=== PATIENT | male | born 1940 | race Caucasian/White ===

== ENCOUNTER 2022-05-12 16:47 | Emergency (ER) | payer MEDICARE, SELFPAY ==
[2022-05-12 17:12] VITALS: BP 146/76; PULSE 47; RESP 15; TEMP 36.8; O2SAT 97; BMI 25.1
--- NOTE | 2022-05-12 18:08 | ED_ITS ---
HPI - General Adult General Chief complaint: Ear/Nose/Throat Problem Stated complaint: Dry mouth Time Seen by Provider: 05/12/22 17:10 History of Present Illness HPI narrative: This 81-year-old male states that he has a taste in his mouth that is been present for the past 2 and half weeks or so. He states that he had pizza and feels like he still tasting the crossed or the cardboard that was in since then. He does report some nausea symptoms. He does not have any other complaints. He is not taking any new medications. He is taking Pepcid which he occasionally uses of course for reflux symptoms. He also takes Prilosec off end on. He does not report any neurologic deficits. He has not had any fevers and does not report any pain. Related Data Home Medications Medication Instructions Recorded Confirmed atorvastatin 20 mg tablet 20 mg PO DAILY 05/12/22 05/12/22 losartan 100 mg tablet 100 mg PO DAILY 05/12/22 05/12/22 metoprolol tartrate 25 mg tablet 25 mg PO DAILY 05/12/22 05/12/22 nortriptyline 10 mg capsule 10 mg PO DAILY 05/12/22 05/12/22 omeprazole 20 mg capsule,delayed 20 mg PO DAILY 05/12/22 05/12/22 release Previous Rx's Medication Instructions Recorded famotidine 20 mg tablet 20 mg PO QDAY #90 tabs 03/19/22 zolpidem 10 mg tablet (Ambien) 10 mg PO .hs PRN insomnia #30 tabs 04/02/22 clonazepam 0.5 mg tablet 0.5 mg PO QDAY #90 tabs 04/13/22 amlodipine 5 mg tablet 7.5 mg PO QDAY #135 tabs 05/05/22 ondansetron HCl 4 mg tablet 4 mg PO Q6H #20 tabs 05/12/22 Allergies Allergy/AdvReac Type Severity Reaction Status Date / Time Oibzvks-OAD-MiQ Reductase AdvReac Mild Cough Verified 05/12/22 17:17 Inhibitor Review of Systems Status of ROS: Reports: 10 or more systems reviewed and unremarkable except as noted in History and below Narrative: Constitutional: No fevers, no weight gain or loss. Eyes: No discharge. No vision changes. HENT: No congestion, no sore throat, no ear pain. Cardiovascular: No chest pain, no palpitations. Respiratory: No shortness of breath, no wheezes, no cough. Gastrointestinal: No abdominal pain, no vomiting, no diarrhea. Genitourinary: No dysuria, no hematuria. Musculoskeletal: Normal range of motion. Skin: No rashes, no pruritis. Neurological: No dizziness, weakness, sensory change, speech change. Taste sensation as described above. Endo/Heme/Allergies: No bruising or bleeding. No polydipsia. Pysch: no suicidality, no anxiety, no insomnia. All other systems reviewed and are negative. [facility] Medical History (Updated 05/12/22 @ 19:12 by Reggie Arias MD) GERD (gastroesophageal reflux disease) Insomnia Social History Smoking Status: Never smoker Do you use any of these nicotine containing products: None How often do you have a drink containing alcohol: 4 or more times a week How many standard drinks containing alcohol do you have on a typical day: 3 or 4 How often do you have six or more drinks on one occasion: Never AUDIT-C Alcohol total score: 5 Non-prescribed substance use: denies use service: No Exam Narrative: Exam Narrative: Constitutional: Well-developed, well-nourished, no acute distress. HEENT: Normocephalic, atraumatic. Neck: Normal range of motion. Nontender. Supple. Heart: Regular. No murmurs. Normal rate. Intact distal pulses. Lungs: Clear to auscultation. No chest discomfort. No wheezes, rhonchi, or rales. Abdomen: Normal bowel sounds. Nontender. No rebound tenderness. Genitalia: Deferred. Back: No midline tenderness. Normal range of motion. Extremities: Normal range of motion. No injury. Skin: Intact. No rash. Warm. No erythema or pallor. Neurologic: No altered sensation. No weakness. Alert and oriented. Psychiatric: No suicidality. No anxiety or depression. No insomnia. Nursing notes and vitals signs are reviewed. Const: Vital Signs, click to edit/add: Vital Signs - 24 hr 05/12/22 17:12 Temperature 98.3 F Pulse Rate [Pulse Oximeter] 47 L Respiratory Rate 15 Blood Pressure [Ri ght Upper Arm] 146/76 H Pulse Oximetry 97 Oxygen Delivery Me thod Room Air Course Vital Signs Vital signs: Initial Vital Signs Temperature 98.3 F 05/12/22 17:12 Temperature Source Temporal Artery Scan 05/12/22 17:12 Pulse Rate 47 L 05/12/22 17:12 Respiratory Rate 15 05/12/22 17:12 Blood Pressure 146/76 H 05/12/22 17:12 Blood Pressure Mean 99 05/12/22 17:12 Blood Pressure Position Sitting 05/12/22 17:12 Pulse Oximetry 97 05/12/22 17:12 Oxygen Delivery Method 05/12/22 17:12 Vital Signs Temperature 98.3 F 05/12/22 17:12 Pulse Rate 47 L 05/12/22 17:12 Respiratory Rate 15 05/12/22 17:12 Blood Pressure 146/76 H 05/12/22 17:12 Pulse Oximetry 97 05/12/22 17:12 Oxygen Delivery Method 05/12/22 17:12 Temperature 98.3 F 05/12/22 17:12 Pulse Rate 47 L 05/12/22 17:12 Respiratory Rate 15 05/12/22 17:12 Blood Pressure 146/76 H 05/12/22 17:12 Pulse Oximetry 97 05/12/22 17:12 Oxygen Delivery Method 05/12/22 17:12 Medical Decision Making MDM Narrative Medical decision making narrative: This patient comes in reporting a taste sensation in his mouth over the past couple weeks. He does report some nausea symptoms so he received a tablet of Zofran 4 mg. He states that this got rid of that taste sensation. He did want to have his labs checked in these all returned with normal results. I did provide prescription for Zofran for him for ongoing management of nausea symptoms as needed and directed. Lab Data Labs: Lab Results 05/12/22 05/12/22 Range/Units 18:15 18:15 WBC 5.31 (4.50-11.00) K/uL RBC 4.46 (4.30-5.90) m/uL Hgb 14.4 (13.5-17.5) gm/dL Hct 42.2 (37.0-53.0) % MCV 95 (80-100) fL MCH 32 (26-34) pg MCHC 34 (32-36) gm/dL RDW Coeff of Ziggy 12.0 (11.5-15.5) % Plt Count 185 (140-440) K/uL Neut % (Auto) 57.9 (42.0-72.0) % Lymph % (Auto) 26.2 (20-44) % [place] % (Auto) 13.0 H (0.0-11.0) % Eos % (Auto) 1.9 (0.0-7.0) % Baso % (Auto) 0.8 (0.0-3.0) % Neut # (Auto) 3.08 (1.7-7.0) K/uL Lymph # (Auto) 1.39 (0.90-2.90) K/uL [place] # (Auto) 0.70 (0.00-0.90) K/UL Eos # (Auto) 0.10 (0.00-0.50) K/uL Baso # (Auto) 0.04 (0.00-0.30) K/uL Abs Immat Gran (auto) 0.01 (0.00-0.30) K/uL Sodium 139 (135-149) mmol/L Potassium 4.3 (3.6-5.1) mmol/L Chloride 104 (96-114) mmol/L Carbon Dioxide 26 (20-32) mmol/L BUN 20 (7-30) mg/dL Creatinine 0.8 (0.5-1.5) mg/dL Estimated Creat Clear 56.95 Estimated GFR 88 ml/min Glucose 94 (60-115) mg/dL Calcium 9.9 (8.4-10.6) mg/dL Total Bilirubin 0.9 (0.1-1.5) mg/dL Direct Bilirubin 0.3 (0.0-0.5) mg/dL AST 26 (12-35) U/L ALT 20 (4-50) U/L Alkaline Phosphatase 77 (40-150) U/L Total Protein 7.5 (6.0-8.3) g/dL Albumin 4.7 (3.3-5.0) g/dL Discharge Plan Discharge Clinical Impression: Altered taste, Nausea Patient Disposition: Home, Self-Care Condition: Improved Additional Instructions: Take medication as needed and directed. Follow up with MD or return if worsening. Prescriptions: New ondansetron HCl 4 mg tablet 4 mg PO Q6H Qty: 20 0RF No Action atorvastatin 20 mg tablet 20 mg PO DAILY nortriptyline 10 mg capsule 10 mg PO DAILY omeprazole 20 mg capsule,delayed release(DR/EC) 20 mg PO DAILY losartan 100 mg tablet 100 mg PO DAILY metoprolol tartrate 25 mg tablet 25 mg PO DAILY famotidine 20 mg tablet 20 mg PO QDAY Qty: 90 4RF zolpidem [Ambien] 10 mg tablet 10 mg PO .hs PRN (Reason: insomnia) Qty: 30 2RF clonazepam 0.5 mg tablet 0.5 mg PO QDAY Qty: 90 0RF amlodipine 5 mg tablet 7.5 mg PO QDAY Qty: 135 0RF Follow Up/Referrals: Terence Vickers MD [Primary Care Provider] - Stand Alone Forms: [facility] Info Instructions
--- OUTSIDE RECORDS SUMMARY | 2022-05-12 18:12 | XMS_ITS | Clinical Summary ---
:1940 Author Organization [employer] [facility] Address [place] [address] Care Team Providers Name Role Phone Suhas Randolph MD Unavailable Terence Vickers MD Primary Care Provider Allergies No known active allergies Medications Medication Sig Dispensed Refills Start Date End Date Status atorvastatin (LIPITOR) Take 1 tablet 90 tablet 3 01/07/2017 Active 40 mg tablet by mouth once daily. nortriptyline (PAMELOR) Take 1 capsule 90 capsule 11 01/07/2017 Active 10 mg capsule by mouth at bedtime. metoprolol tartrate Take 1 tablet 180 tablet 1 08/12/2017 Active (LOPRESSOR) 50 mg tablet by mouth 2 times daily clonazePAM (KLONOPIN) Take 1/2-1 30 tablet 0 10/28/2017 Active 0.5 mg tablet tablet by mouth at bedtime zolpidem (AMBIEN) 10 mg Take 1 tablet 7 tablet 2 11/24/2017 Active tablet by mouth at bedtime as needed for sleep. Not to use more than 3 tabs per week. Capsicum, Cayenne, 450 Daily 0 Active mg cap multivitamins with 0 A ctive minerals tablet amLODIPine (NORVASC) 10 Take 0.5 0 06/26/2021 Active mg tablet Tablets by mouth once daily. aspirin enteric coated Daily 0 Active (ECOTRIN) 325 mg tablet cholecalciferol (VITAMIN Daily 0 Active D3) 1,000 unit capsule famotidine (PEPCID) 20 Daily 0 01/31/2021 Active mg tablet losartan (COZAAR) 50 mg Take 2 Tablets 0 08/01/2020 Active tablet by mouth once daily. coenzyme q10 100 mg cap Daily 0 Active Active Problems Problem Noted Date Health examination of defined subpopulation 12/20/2013 Coronary artery calcification seen on CAT scan 014 Hypertension 12/18/2013 Hyperlipidemia 12/18/2013 Abnormal findings diagnostic imaging of heart and chad nary circulation 12/18/2013 Lung nodule 12/18/2013 Insomnia 12/18/2013 GERD (gastroesophageal reflux disease) 12/18/2013 Shoulder injury 12/18/2013 Immunizations Name Administration Dates Next Due COVID-19 vaccine (Intapp 10/19/2020, 09/28/2020 30mcg/0.3mL) PF, MDV Influenza Virus, Unspecified 05/23/2021, 06/01/2012, 011 Influenza, High-dose Inactivated 05/30/2018, 05/26/2017, 01/2016, 05/29/2014 Influenza, High-dose Quadrivalent 06/04/2021, 06/04/2020 Inactivated Influenza, IIV3 (Age >=3 years) 06/12/2010, 05/22/2009, 02/2008, 07/06/2007, 06/16/2005 Influenza, IIV4 05/27/2019 Pneumococcal Poly,23-Valent 07/11/2011, 07/11/2010, 05/22/20 09 (Pneumovax) Pneumococcal conj 13-Valent (Prevnar 02/24/2018 13) Td (Age >=7 Years) 08/23/2008, 08/26/2004, 09/29/1990 Td, Preservative Free (age >= 7 08/23/2008 Years) Tdap 02/24/2018 Zoster (Shingrix-RZV, recombinant) 07/14/2019, 05/13/2019 Zoster (Zostavax-ZVL, live) 08/13/2014 Family History Medical History Relation Name Comments Other Brother born prematurely so walks with walker Good Health Daughter x 2 Other Father natural causes Heart attack Maternal Grandfather Lung cancer Mother Heart attack Paternal Grandfather Multiple sclerosis Sister 1 No Known Problems Sister 2 Good Health Son Relation Name Status Comments Brother Alive Daughter x 2 Alive Father Maternal Grandfather Maternal Grandmother Mother Paternal Grandfather Paternal Grandmother Sister 1 Alive Sister 2 Alive Son Alive Social History Tobacco Use Types Packs/Day Years Used Date Former Smoker Started: 12/29 Smokeless Tobacco: Never Used Alcohol Use Standard Drinks/Week Comments Yes 17.5 (1 standard drink = 0.6 oz pure eit her 2 beers daily or 2 glasses alcohol) of wine Alcohol Habits Answer Date Recorded How often do you have a drink 4 or more times a week 021 containing alcohol? How many drinks containing alcohol do 1 or 2 you have on a typical day when you are drinking? How often do you have six or more Never 2020 drinks on one occasion? Comment: either 2 beers daily or 2 glasses 2020 of wine Sex Assigned at Date Recorded Not on file Obstetrics History Last Filed Vital Signs Vital Sign Reading Time Taken Comments Blood Pressure 122/60 10/02/2021 10:53 AM BPM DEVELOPER Pulse 68 10/02/2021 10:53 AM BPM DEVELOPER Temperature - - Respiratory Rate - - Oxygen Saturation - - Inhaled Oxygen Concentration - - Weight 83.6 kg (184 lb 6.4 oz) 10/02/2021 10:53 AM BPM DEVELOPER Height 175.3 cm (5' 9) 10/02/2021 10:53 AM BPM DEVELOPER Body Mass Index 27.23 10/02/2021 10:53 AM BPM DEVELOPER Plan of Treatment Health Maintenance Due Date Last Done Comments Medicare Wellness for age 65+ 2004 COVID-19 vaccine series (4 - 10/04/2021 06/03/2021, 021, Booster for Pfizer series) 09/28/2020 Depression screening for age 12+ 10/09/2021 10/09/2020 Influenza for age 65+ 04/23/2022 06/04/2021, 05/23/2021, 06/04/2020, Additional history exists BMI (ht and wt on same day) for 10/02/2022 10/02/2021, 08/24, age 18+ 10/09/2020 Tetanus booster 02/25/2028 02/24/2018, 08/23/2008, 08/23/2008, Additional history exists Pneumococcal series for age 65+ Completed 02/24/2018, 06/23, 07/11/2010, Additional history exists Tdap Completed 02/24/2018 Zoster (shingles) series for age Completed 07/14/2019, , 50+ 08/13/2014 Goals Goal Patient Goal Associated Recent Patient-Stated? Author Type Problems Progress BLOOD PRESSURE Blood Pressure No Tomasa , Edouard MAINTAINS BP MD Suhas less than 140/90 Results Not on filefrom Last 3 Months Insurance Payer Benefit Plan / Subscriber ID Effective Dates Phone Addre ss Type Group MEDICARE PART B - MEDICARE PART B [id number] 2004-Presen ATTN: CLAIMS HB USE ONLY HB ONLY t [address] [facility] [address] MEDICA MEDICA PRIME [id number] 2016-Presen [address] [address] [place] [address] [facility] MR [id number] 2021-Presen [address] [address] [place] [address] [place] Occ Other [id number] [facility] DS ONLY Health/Shellie (Home) [place], [place] [phone] [id number] (Work) [employer] 1940 [id number] (Home) [place] [address] Care Teams Water Treatment Specialist Relationship Specialty Start Date End Date Terence Vickers MD PCP - General Family Practice 02/15/19 [address] [place] [address] Suhas Randolph MD Consulting Physician Cardiovascular Disease 12/29/13
[2022-05-12] MEDS: ONDANSETRON ODT 4 MG TAB PO (18:22)
[2022-05-12 18:30] LABS: Basophils Absolute Auto 0.04 K/uL (0.00-0.30); Basophils Percent Auto 0.8 % (0.0-3.0); Eosinophils Percent Auto 1.9 % (0.0-7.0); Hematocrit 42.2 % (37.0-53.0); Hemoglobin* 14.4 gm/dL (13.5-17.5); Immature Granulocytes Abs Auto 0.01 K/uL (0.00-0.30); Lymphocytes Absolute Auto 1.39 K/uL (0.90-2.90); Lymphocytes Percent Auto 26.2 % (20-44); Mean Corpuscular HGB Conc 34 gm/dL (32-36); Mean Corpuscular Hemoglobin 32 pg (26-34); Mean Corpuscular Volume 95 fL (80-100); Neutrophils Absolute Auto 3.08 K/uL (1.7-7.0); Neutrophils Percent Auto 57.9 % (42.0-72.0); Platelet Count* 185 K/uL (140-440); Red Blood Count 4.46 m/uL (4.30-5.90); White Blood Count* 5.31 K/uL (4.50-11.00)
[2022-05-12 18:32] LABS: Slide Review Reflex No
[2022-05-12 18:40] LABS: Albumin* 4.7 g/dL (3.3-5.0); Chloride* 104 mmol/L (96-114)
[2022-05-12 18:41] LABS: Potassium* 4.3 mmol/L (3.6-5.1); Sodium* 139 mmol/L (135-149)
[2022-05-12 18:43] LABS: Aspartate Amino Transferase* 26 U/L (12-35); Bilirubin Direct* 0.3 mg/dL (0.0-0.5); Bilirubin Total* 0.9 mg/dL (0.1-1.5); Blood Urea Nitrogen* 20 mg/dL (7-30); Carbon Dioxide* 26 mmol/L (20-32); Creatinine* 0.8 mg/dL (0.5-1.5); Est. Creatinine Clearance* 56.95; Estimated Glomerular Filt Rate 88 ml/min; Total Protein* 7.5 g/dL (6.0-8.3)
[2022-05-12 18:44] LABS: Alanine Aminotransferase* 20 U/L (4-50); Alkaline Phosphatase* 77 U/L (40-150); Calcium* 9.9 mg/dL (8.4-10.6); Glucose* 94 mg/dL (60-115)
[2022-05-12 19:21] VITALS: BP 139/75; PULSE 46; RESP 18; TEMP 35.8
== END 2022-05-12 19:26 | disposition home or self-care (01) ==
PROVIDERS: Emergency Provider Emergency Medicine Emergency Medical Services; PCP Family Medicine
DX: R43.9 Unspecified disturbances of smell and taste (principal); R11.0 Nausea
CPT/HCPCS: 36415; 80048; 80076; 85025; 99283; 99284; A9270

== ENCOUNTER 2023-02-03 09:56 | Outpatient (CLI) | payer MEDICARE, SELFPAY | END 2023-02-03 09:57 | disposition home or self-care (01) | LOC: NFLDREF 02-04 00:59 | PROVIDERS: PCP Family Medicine; Referring Provider Family Medicine; Visit Provider Family Medicine | DX: Z00.00 Encounter for general adult medical examination without abnormal findings (principal); E78.5 Hyperlipidemia, unspecified; I10 Essential (primary) hypertension; I25.10 Atherosclerotic heart disease of native coronary artery without angina pectoris; Z12.5 Encounter for screening for malignant neoplasm of prostate | CPT/HCPCS: 80053; 80061; 84153 ==

== ENCOUNTER 2024-01-24 09:35 | Outpatient (CLI) | payer OTHER, SELFPAY ==
--- OUTSIDE RECORDS SUMMARY | 2024-02-08 17:02 | XMS_ITS | Encounter Summary ---
Author Organization [employer] Address [address] [place] [address] Care Team Providers Care Medical Aide Name Role Phone Sabrina Martell MD Primary Care Provider Unavailable Andrey Willis MD Primary Care Provider [phone] Terence Vickers MD Primary Care Provider [phone] Avila Maria MD Unavailable [phone] Avila Maria MD Unavailable [phone] Encounter Details Date Type Department Care Team (Late st Contact Info) Description 11/21/2007 Office Visit-[facility] [id number] [place] [address] Rosamaria Valerio PA-C Social History Tobacco Use Types Packs/Day Years Used Date Smoking Tobacco: Former Cigarettes Q uit: 08/27/1997 Alcohol Use Standard Drinks/Week Comments Yes 0 (1 standard drink = 0.6 oz pur e alcohol) 2-3 beers/day Sex and Gender Information Value Date Recorded Sex Assigned at Not on file Gender Identity Not on file Sexual Orientation Not on file documented as of this encounter Progress Notes * Rosamaria Valerio PA-C - 11/23/2007 9:41 AM CDT Progress Note Created by: Sharda Olvera DATE: 11/21/2007 ALONZO MELISSA DATE OF : 1940 AGE: [age] years old Referring Physician: SABRINA MARTELL Referring Clinic: [facility] CURRENT DIAGNOSES 1. Cardiomyopathy, 425.4 2. - Hypercholesterolemia, 272.0 3. - CAD, 414.00 4. - Abnormal Test-Abnormal Exercise Stress Test, 794.30 5. - Chest Pain Precordial, 786.51 6. - Hypertension, benign, 401.1 ALLERGIES Statins/cough MEDICATIONS (prior to changes made today) 1. Omeprazole 20mg, Take as Directed 2. Metoprolol ER 50mg, 1 p.o. q.d. 3. Diovan 160 mg, 1 p.o. q.d. 4. Ranitidine Hydrochloride 300 mg, PRN 5. Meloxicam 7.5 mg, PRN 6. Vytorin 10mg/ 80mg, 1 p.o. q.d. CHIEF COMPLAINTS F/u ct HISTORY OF PRESENT ILLNESS Mr. Alonzo Melissa is a delightful 67-year-old gentleman who presents today for a follow-up regarding chest pain and cardiac risk factors. He has risk factors of family history, hypertension and dyslipidemia. He has had two prior CT scans at [facility] showing a calcium score of 183 back in 2002 and in 2006 it was over 400. He was very concerned about this and was sent for a stress test. The nuclear images showed a mild degree of inferior ischemia as well as a small, reversible basal anterior defect. His EF was 49%. He was complaining of some chest discomfort symptoms. He described a left sided discomfort radiating to the axilla. It was mostly nonexertional and not associated withdiaphoresis, shortness of breath or light-headedness. He is able to walk around his home without any difficulty. He takes trips to the grocery store and even carries the groceries home again without difficulty. His LDL cholesterol had consistently been 100, therefore his simvastatin was increased to 80mg. He also had a CT angiogram done to evaluate the abnormal stress test. This showed a normal left main. The LAD was mildly occluded in the proximal segment. Just beyond the ostium was mild to moderate narrowing with mixed plaque. The first and second diagonal were normal. The left circumflex had trivial plaque and the right coronary artery had mild soft plaque present in the proximal segment. The mid and distal segments were normal with step artifact present. The lungs and soft tissues didnot reveal any significant abnormality. Today Mr. Melissa tells me that the chest pain still occurs very intermittently although he thinksoverall it is improved. He denies any exertional component. He also denies any shortness of breath.His blood pressure is well controlled today at 128/70 and he has restarted his Diovan. His cholesterol results showed triglycerides of 131, total cholesterol 151, HDL 52, LDL 73, ratio 2.9 and ALT 31. He is tolerating the increased simvastatin without any myalgias. 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 EYES denies diplopia, history of glaucoma or visual field defects. EARS, NOSE, THROAT, MOUTH denies any hearing loss, epistaxis, hoarseness or difficulty speaking. RESPIRATORY dyspnea with exertion CARDIOVASCULAR negative for palpitations, chest pain, orthopnea, PND, peripheral edema, syncope or claudication. ABDOMINAL denies ulcer disease, hematochezia or melena. MUSCULOSKELETAL arthritis of the, back/spine NEUROLOGICAL denies any history of recurrent strokes, headaches, TIA, or seizure disorder. PSYCHIATRIC denies any history of depression, substance abuse or change in cognitive functions. ENDOCRINE weight gain HEMATOLOGICAL/IMMUNOLOGIC denies any food allergies, seasonal allergies, bleeding disorders. PHYSICAL EXAMINATION VITAL SIGNS: Blood Pressure: 128/70 Sitting, Left arm, large cuff Pulse- 52.00/min. Weight- 207.00 lbs. Height- 70.00 Temperature- .00 CONSTITUTIONAL cooperative, alert and oriented,well developed, well nourished, in no acute distress. SKIN warm and dry to touch, no apparent skin lesions, or masses noted. HEAD normocephalic, atraumatic EYES Pupils equal and round, conjunctivae and lids unremarkable, sclera white, no xanthalasma NECK carotid pulses are full and equal bilaterally, JVP normal, no carotid bruit, no thyromegaly CHEST normal symmetry, no tenderness to palpation, normal respiratory excursion, no intercostal retraction, no use of accessory muscles, clear to auscultation and percussion. CARDIAC regular rhythm, S1 normal, S2 normal, No S3 or S4, Apical impulse not displaced, no murmurs, gallops or rubs detected. ABDOMEN abdomen soft, bowel sounds normoactive, no masses, no hepatosplenomegaly, non- tender, no bruits PERIPHERAL PULSES pulses full and equal in all extremities, no bruits auscultated. EXTREMITIES & BACK no deformities, clubbing, cyanosis, erythema or edema observed. There are no spinal abnormalities noted. Normal muscle strength and tone. NEUROLOGICAL no gross motor deficits noted, affect appropriate, oriented to time, person and place. MEDICATIONS UPDATED/STARTED TODAY: Omeprazole 20mg, Take as Directed, DIRECTED IMPRESSION AND PLAN: 1. Hyperlipidemia. At this time his numbers are controlled. His goal LDL should be less than 100, it is now 73. He will continue to follow his lipids with Dr. Martell every six months. 2. Coronary artery disease which is mild to moderate by CT angiogram. He is asymptomatic. I have not recommended any further treatment at this time. I will discuss with Dr. Lemons whether we should do annual stress testing on this patient and let him know. He will return to our clinic PRN at this point. Sharda Olvera documented in this encounter Plan of Treatment Not on file documented as of this encounter Visit Diagnoses Not on filedocumented in this encounter Care Teams Medical Aide Relationship Specialty Start Date End Date Sabrina Martell MD PCP - General 03/04/04 11/16/16 Andrey Willis MD [facility] [address] [place] [id number] PCP - General Family Practice 11/17/16 01/31/18 Terence Vickers MD [facility] [address] [place] [address] PCP - General Family Practice 02/01/18 Avila Maria MD [address] [place] [address] [id number] Assigned Heart and Vascular Provider 10/23/20 1/9/21 Avila Maria MD [address] [place] [address] Assigned Heart and Vascular Provider 03/07/22 09/03/23 documented as of this encounter
--- OUTSIDE RECORDS SUMMARY | 2024-02-08 17:02 | XMS_ITS | Encounter Summary ---
Author Organization [facility] Address [address] [place] [address] Care Team Providers Care Cordwainer Name Role Phone Dylan Chopra MD Primary Care Provider Unavailable Andrey Willis MD Primary Care Provider [phone] Terence Vickers MD Primary Care Provider [phone] Avila Maria MD Unavailable [phone] Avila Maria MD Unavailable [phone] Reason for Visit * Reason Onset Date Comments MyChart Communication 05/03/2009 Encounter Details Date Type Department Care Team (Latest Contact Info) Description 05/02/2009 [facility] [address] [address] Dylan Chopra MD MyChart Communication Social History Tobacco Use Types Packs/Day Years Used Date Smoking Tobacco: Former Cigarettes Q uit: 08/27/1997 Alcohol Use Standard Drinks/Week Comments Yes 0 (1 standard drink = 0.6 oz pur e alcohol) 2-3 beers/day Sex and Gender Information Value Date Recorded Sex Assigned at Not on file Gender Identity Not on file Sexual Orientation Not on file documented as of this encounter Plan of Treatment Not on file documented as of this encounter Visit Diagnoses Not on filedocumented in this encounter Care Teams Cordwainer Relationship Specialty Start Date End Date Dylan Chopra MD PCP - General 03/04/04 11/16/16 Andrey Willis MD [facility] [address] [place] [address] PCP - General Family Practice 11/17/16 01/31/18 Terence Vickers MD [facility] [address] [address] PCP - General Family Practice 02/01/18 Avila Maria MD [address] [place] [address] Assigned Heart and Vascular Provider 06/14/20 08/31/20 Avila Maria MD [address] [place] [address] Assigned Heart and Vascular Provider 03/07/22 09/03/23 documented as of this encounter
--- OUTSIDE RECORDS SUMMARY | 2024-02-08 17:02 | XMS_ITS | Referral Summary ---
Author Organization [facility] Address [address] [place] [address] Care Team Providers Care Freight Rate Analyst Name Role Phone Terence Vickers MD Primary Care Provider [phone] Allergies Active Allergy Reactions Criticality Noted Date Comments Chaparro Inhibitors Swelling 08/26/2004 noc. coughing Medications Medication Sig Dispensed Refills Start Date End Date Status zolpidem (AMBIEN) 10 MG tabletIndications:S leep disorder Take 1 tablet (10 mg) by mouth nightly as needed for sleep 30 tablet 1 05/05/2013 Active Additional Information Patient taking differently: 5 mgOral AT BEDTIME PRN, sleep, Reported on 03/04/2022 Omeprazole (PRILOSEC PO) Take 20 mg by mouth every morning Active clonazePAM (KLONOPIN) 0.5 MG tablet Take 0.5 mg by mouth as needed for anxiety Active losartan-hydrochlor othiazide (HYZAAR) 50-12.5 MG per tablet Take 1 tablet by mouth daily Active atorvastatin (LIPITOR) 40 MG tablet TAKE 1/2 TABLET (20MG) BY MOUTH DAILY. 3 02/13/2019 Active aspirin (ASA) 325 MG EC tabletIndications:H ypertension goal BP (blood pressure) < 140/90 Take 1 tablet (325 mg) by mouth daily 02/22/2019 Active amLODIPine (NORVASC) 5 MG tabletIndications:H ypertension goal BP (blood pressure) < 140/90 Take 1 tablet (5 mg) by mouth daily 90 tablet 3 02/22/2019 Active Active Problems Problem Noted Date Diagnosed Date Hyperlipidemia LDL goal <100 02/08/2013 Sleep disorder 02/03/2013 Hypertension goal BP (blood pressure) < 140/90 0 12/18/2011 IBS (irritable bowel syndrome) 10/23/2011 Anxiety 08/21/2009 Esophageal reflux 08/26/2004 Need for prophylactic vaccin ation with tetanus-diphtheria (Td) 08/26/2004 Impotence of organic origin 08/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 01/09/2011 Hyperlipidemia LDL goal <100 06/22/2010 08/27/2010 Hyperlipidemia 08/26/2004 05/27/2006 Overview: Problem list name updated by automated process. Provider to review Immunizations Name Administration Dates Next Due Influenza (IIV3) PF 06/01/2012, 1,06/12/2010,05/22/2009, 8,07/06/2007,06/16/2005 Pneumococcal 23 valent 05/22/2009 TD,PF 7+ (Tenivac) 08/26/2004 Zoster vaccine, live 08/13/2014 Social History Tobacco Use Types Packs/Day Years Used Date Smoking Tobacco: Former Cigarettes Q uit: 08/27/1997 Smokeless Tobacco: Never Alcohol Use Standard Drinks/Week Comments Yes 0 (1 standard drink = 0.6 oz pur e alcohol) 2 beers/day Adolescent Education Answer Date Record ed Getting School Help Needed Not on file 05/16 Sex and Gender Information Value Date Recorded Sex Assigned at Not on file Gender Identity Not on file Sexual Orientation Not on file Last Filed Vital Signs Vital Sign Reading Time Taken Comments Blood Pressure 157/77 05/10/2022 5:55 AM CDT Pulse 39 05/10/2022 5:55 AM CDT Temperature 36.6 ??C (97.8 ??F) 05/10/2022 5:56 AM CD T Respiratory Rate 20 05/10/2022 5:56 AM CDT Oxygen Saturation 100% 05/10/2022 5:56 AM CDT Inhaled Oxygen Concentration - - Weight 85.5 kg (188 lb 8 oz) 03/04/2022 8:43 AM CDT Height 174 cm (5' 8.5) 03/04/2022 8:43 AM CDT Body Mass Index 28.24 03/04/2022 8:43 AM CDT Plan of Treatment Not on file Procedures Procedure Name Priority Date/Time Associated Diagnosis Comments COLONOSCOPY Routine 03/29/2018 7:17 AM CDT LIPID PROFILE Routine 01/07/2017 BASIC METABOLIC PANEL Routine 01/07/2017 ALBUMIN RANDOM URINE QUANTITATIVE Routine 02/17/2013 12:25 PM CDT Hypertension goal BP (blood pressure) < 140/90 PROSTATE SPECIFIC ANTIGEN SCREEN Routine 06/01/2012 10:06 AM CDT Special screening for malignant neoplasms of other sites from Last 3 Months or Most Recently Relevant to Health Maintenance Results * COLONOSCOPY (03/29/2018 7:17 AM CDT) Pathologist [facility] COLONOSCOPY [facility] Patient Name: Alonzo Eastmann ?Procedure Date: 03/29/2018 7:17 AM ? Date of : 1940 ?Admit Type: Outpatient Age: 77 ? Gender: Male Attending MD: Kian Dia MD ?? Total Sedation Time: __29___minutes continuous bedside 1:1 Instrument Name: 138 ? Procedure: ?Colonoscopy Indications: ?High risk colon cancer surveillance: Personal ?history of colonic polyps Providers: ?Kian Dia MD (Doctor) Referring MD: ? Terence Vickers MD (Referring MD) Medicines: ?None Complications: ?No immediate complications. Procedure: ?Pre-Anesthesia Assessment: ?- Prior to the procedure, a History and Physical ?was performed, and patient medications and ?allergies were reviewed. The patient is competent. ?The risks and benefits of the procedure and the ?sedation options and risks were discussed with the ?patient. All questions were answered and informed ?consent was obtained. Patient identification and ?proposed procedure were verified by the physician ?in the procedure room. Mental Status Examination: ?alert and oriented. Airway Examination: normal ?oropharyngeal airway and neck mobility. Respiratory ?Examination: clear to auscultation. CV Examination: ?normal. Prophylactic Antibiotics: The patient does ?not require prophylactic antibiotics. Prior ?Anticoagulants: The patient has taken no previous ?anticoagulant or antiplatelet agents. ASA Grade ?Assessment: II - A patient with mild systemic ?disease. After reviewing the risks and benefits, ?the patient was deemed in satisfactory condition to ?undergo the procedure. The anesthesia plan was to ?use moderate sedation / analgesia (conscious ?sedation). Immediately prior to administration of ?medications, the patient was re-assessed for ?adequacy to receive sedatives. The heart rate, ?respiratory rate, oxygen saturations, blood ?pressure, adequacy of pulmonary ventilation, and ?response to care were monitored throughout the ?procedure. The physical status of the patient was ?re-assessed after the procedure. ?After obtaining informed consent, the colonoscope ?was passed under direct vision. Throughout the ?procedure, the patient's blood pressure, pulse, and ?oxygen saturations were monitored continuously. The ?Olympus Peds Colonoscope Model #PCF-H190L, ?[place]ora#138, SN#[id number] was introduced through the ?anus and advanced to the cecum, identified by ?appendiceal orifice and ileocecal valve. The ?colonoscopy was performed without difficulty. The ?patient tolerated the procedure well. The quality ?of the bowel preparation was good. ? Findings: ? The perianal and digital rectal examinations were normal. ? The entire examined colon appeared normal on direct and retroflexion ? views. ? Impression: ? - The entire examined colon is normal on direct and ?retroflexion views. ?- No specimens collected. Recommendation: ? - No repeat colonoscopy due to age. ? Procedure Code(s): ? --- Professional --- ? G0105, Colorectal cancer screening; colonoscopy on individual at high ? risk Diagnosis Code(s): ? --- Professional --- ? Z86.010, Personal history of colonic polyps CPT copyright 2017 [employer]. All rights reserved. The codes documented in this report are preliminary and upon manager publishing review may be revised to meet current compliance requirements. Electronically signed by Kian Dia MD __ Kian Dia MD 03/29/2018 8:13:11 AM I was physically present for the entire viewing portion of the exam. Kian Dia MD Number of Addenda: 0 Note Initiated On: 03/29/2018 7:17 AM MRN: ?[id number] Procedure Date: ? 03/29/2018 7:17:44 AM Scope Withdrawal Time: 0 hours 7 minutes 3 seconds Total Procedure Duration: 0 hours 15 minutes 16 seconds Estimated Blood Loss: ? Scope In: 7:54:53 AM Scope Out: 8:10:09 AM RADIOLOGY RESULTS 03/29/2018 7:17 AM CDT Terence Vickers MD PROCEDURES RADIOLOGY RESULTS * Lipid Profile (01/07/2017) Cholesterol 160 0.0 - 200 mg/dL [facility] Triglycerides 87 30 - 200 mg/dL [facility] HDL Cholesterol 63 40 - 96 mg/dL [facility] LDL Cholesterol Calculated 17.4 5.0 - 40.0 mg/dL [facility] Non HDL Cholesterol mg/dl [facility] Blood specimen (specimen) 01/07/2017 Patient Reported LAB - BLOOD ORDERABL ES Performing Organization Address City/[facility]/ZIP Co de Phone Number [facility] [address] [phone] * Basic metabolic panel (01/07/2017) Sodium 142 136 - 145 mmol/L [facility] Potassium 5.1 3.6 - 5.1 mmol/L [facility] Chloride 104 98 - 107 mmol/L [facility] Carbon Dioxide 31.3 21 - 32 mmol/L [facility] Anion Gap 11.8 9.0 - 19.0 mmol/L [facility] Glucose 79 70 - 99 mg/dL [facility] Urea Nitrogen 16 7 - 18 mg/dL [facility] Creatinine 1.0 0.6 - 1.3 mg/dL [facility] Calcium 9.2 8.5 - 10.1 mg/dL [facility] GFR Estimate ml/min/1.7 2 [facility] GFR Estimate If Black ml/min/1.7 2 [facility] Blood specimen (specimen) 01/07/2017 Patient Reported LAB - BLOOD ORDERABL ES Performing Organization Address City/[facility]/ZIP Co de Phone Number [facility] [address] [phone] * Microalbumin quantitative random urine (02/17/2013 12:25 PM CDT) Creatinine Urine 21 mg/dL [facility] Albumin Urine mg/L <5 Urine Microalbumin lowest reportable value has been changed from 2 mg/L to 5 mg/L due to a methodology change on November. mg/L [facility] Albumin Urine mg/g Cr Unable to calculate 0 - 17 mg/g Cr [facility] Urine specimen (specimen) 02/17/2013 12:25 PM CDT 02/17/2013 12:26 PM CDT Enzo Benton MD LAB - URINE ORDERABL ES [facility] * PSA, screen (06/01/2012 10:06 AM CDT) PSA 3.12 0 - 4 ug/L [facility] Blood specimen (specimen) 06/01/2012 10:06 AM CDT 06/01/2012 10:09 AM CDT Dylan Chopra MD LAB - BLOOD ORD ERABLES [facility] from Last 3 Months or Most Recently Relevant to Health Maintenance Care Teams Freight Rate Analyst Relationship Specialty Start Date End Date Terence Vickers MD PCP - General Family Practice 02/01/18
--- OUTSIDE RECORDS SUMMARY | 2024-02-08 17:02 | XMS_ITS | Clinical Summary ---
Author Organization [facility] Address [address] [place] [address] Care Team Providers Care Coagulating Bath Mixer Name Role Phone Terence Vickers MD Primary Care Provider [phone] Allergies Active Allergy Reactions Criticality Noted Date [...] 7+ (Tenivac) 08/26/2004 Zoster vaccine, live 08/13/2014 Family History Medical History Relation Comments C.A.D. Maternal Grandfather of M.I . in his 40's Cancer Mother of lung can cer at 64yoa C.A.D. Paternal Grandfather of M.I . in his 40's Cancer - colorectal No family hx of Colon Cancer No family hx of Relation Status Comments Daughter 1 Alive Deepika Daughter 2 Alive Giovana Father (Age 97) Maternal Grandfather Mother (Age 64) Paternal Grandfather Son Alive Alonzo MYERS Social History Tobacco Use Types Packs/Day Years [...] 03/04/2022 8:43 AM CDT Plan of Treatment Health Maintenance Due Date Last Done Comments ANNUAL REVIEW OF HM ORDERS 1940 CT COLONOGRAPHY 1940 FIT 1940 FLEX SIG 1940 sDNA (Cologuard) 1940 RSV VACCINE ( & 60+) (1 - 1-dose 60+ series) 1999 MEDICARE ANNUAL WELLNESS VISIT 03/07/2008 03/07/2007, 08/26/2004 PSA 06/01/2013 06/01/2012, 11/22, 01/06/2011, Additional history exists MICROALBUMIN 02/17/2014 02/17/2013 FALL RISK ASSESSMENT 02/07/2015 02/07/2014, 08/29/19 13 ADVANCE CARE PLANNING 01/10/2016 01/09/2011, 011 BMP 01/07/2018 01/07/2017, 060 04/2016, 02/17/2013, Additional history exists CREATININE 01/07/2018 01/07/2017, 060 04/2016, 02/17/2013, Additional history exists LIPID 01/07/2018 01/07/2017, 060 04/2016, 02/17/2013, Additional history exists COVID-19 Vaccine ( season) 2023 12/08/2021, 06/03/2021, 10/19/2020, Additional history exists PHQ-2 (once per calendar year) 2023 INFLUENZA VACCINE (Season Ended) 2024 06/04/2021, 05/23/2021, 06/04/2020, Additional history exists DTAP/TDAP/TD IMMUNIZATION (2 - Td or Tdap) 02/25/2028 02/24/2018, 08/23/2008, 08/23/2008, Additional history exists COLONOSCOPY 03/29/2028 03/29/2018, 02/2018, 06/07/2012, Additional history exists Pneumococcal Vaccine: 65+ Years Completed 02/24/2018, 07/11/2011, 07/11/2010, Additional history exists ZOSTER IMMUNIZATION Completed 07/14/2019, 05/13/2019, 08/13/2014 COLORECTAL CANCER SCREENING Discontinued HPV IMMUNIZATION Aged Out No longer e ligible based on patient's age to complete this topic IPV IMMUNIZATION Aged Out No longer e ligible based on patient's age to complete this topic MENINGITIS IMMUNIZATION Aged Out No l onger eligible based on patient's age to complete this topic RSV MONOCLONAL ANTIBODY Aged Out No l onger eligible based on patient's age to complete this topic Procedures Procedure Name Priority Date/Time Associated Diagnosis [...] Results * COLONOSCOPY (03/29/2018 7:17 AM CDT) COLONOSCOPY [facility] Patient Name: Alonzo Melissa ?Procedure Date: 03/29/2018 7:17 AM ? Date [...] The ?Olympus Peds Colonoscope Model #PCF-H190L, ?[place]ora#138, SN#[id number] was introduced through the ?anus and advanced [...] history of colonic polyps CPT copyright 2017 [employer]. All rights reserved. The codes documented in this report are preliminary and upon billing collections specialist review may be revised to meet current compliance requirements. Electronically signed by Kian Dia MD __ Kian Dia MD 03/29/2018 8:13:11 AM I was physically present for the entire viewing portion of the exam. Kian Dia MD Number of Addenda: 0 Note Initiated On: 03/29/2018 7:17 AM MRN: ?[id number] Procedure Date: ? 03/29/2018 7:17:44 AM Scope Withdrawal Time: 0 hours 7 minutes 3 seconds Total Procedure Duration: 0 hours 15 minutes 16 seconds Estimated Blood Loss: ? Scope In: 7:54:53 AM Scope Out: 8:10:09 AM RADIOLOGY RESULTS 03/29/2018 7:17 AM CDT Terence Vickers MD PROCEDURES Performing Organization Address City/[facility]/ZIP Co de Phone Number RADIOLOGY RESULTS * Lipid Profile (01/07/2017) Cholesterol 160 0.0 - 200 mg/dL [facility] Triglycerides 87 30 - 200 mg/dL [facility] HDL Cholesterol 63 40 - 96 mg/dL [facility] LDL Cholesterol Calculated 17.4 5.0 - 40.0 mg/dL [facility] Non HDL Cholesterol mg/dl [facility] Blood specimen (specimen) 01/07/2017 Patient Reported LAB - BLOOD ORDERABL ES [facility] [address] [phone] * Basic metabolic panel (01/07/2017) Sodium 142 136 - 145 mmol/L [facility] Potassium 5.1 3.6 - 5.1 mmol/L [facility] Chloride 104 98 - 107 mmol/L [facility] Carbon Dioxide 31.3 21 - 32 mmol/L [facility] Anion Gap 11.8 9.0 - 19.0 mmol/L [facility] Glucose 79 70 - 99 mg/dL [facility] Urea Nitrogen 16 7 - 18 mg/dL [facility] Creatinine 1.0 0.6 - 1.3 mg/dL [facility] Calcium 9.2 8.5 - 10.1 mg/dL [facility] GFR Estimate ml/min/1.7 3m2 [facility] GFR Estimate If Black ml/min/1.7 2 [facility] Blood specimen (specimen) 01/07/2017 Patient Reported LAB - BLOOD ORDERABL ES [facility] [address] [place], [place] [id number] [place] [address] * Microalbumin quantitative random urine (02/17/2013 12:25 PM CDT) Creatinine Urine 21 mg/dL [facility] Albumin Urine mg/L <5 Urine Microalbumin lowest reportable value has been changed from 2 mg/L to 5 mg/L due to a methodology change on November. mg/L [facility] Albumin Urine mg/g Cr Unable to calculate 0 - 17 mg/g Cr [facility] Urine specimen (specimen) 02/17/2013 12:25 PM CDT 02/17/2013 12:26 PM CDT Enzo Benton MD LAB - URINE ORDERABL ES Performing Organization Address [facility]/ZIP Co de Phone Number [facility] * PSA, screen (06/01/2012 10:06 AM CDT) PSA 3.12 0 - 4 ug/L [facility] Blood specimen (specimen) 06/01/2012 10:06 AM CDT 06/01/2012 10:09 AM CDT Dylan Chopra MD LAB - BLOOD ORD ERABLES [facility] from Last 3 Months or Most Recently Relevant to Health Maintenance Care Teams Coagulating Bath Mixer Relationship Specialty Start Date End Date Terence Vickers MD PCP - General Family Practice 02/01/18
--- OUTSIDE RECORDS SUMMARY | 2024-02-08 17:02 | XMS_ITS | Encounter Summary ---
Author Organization [place] Address [address] [place] [id number] Care Team Providers Care Reducing System Operator Name Role Phone Sabrina Martell MD Primary Care Provider Unavailable Andrey Willis MD Primary Care Provider [phone] Terence Vickers MD Primary Care Provider [phone] Avila Maria MD Unavailable [phone] Avila Maria MD Unavailable [phone] Encounter Details Date Type Department Care Team (Late st Contact Info) Description 07/11/2009 Office Visit-[facility] [address] [address] Unknown, DoctorMD Social History Tobacco Use Types Packs/Day Years [...] as of this encounter Progress Notes * Unknown, MD Moncho - 07/11/2009 1:50 PM CST Progress Note Created by: John Klein M.D. DATE: 07/09/2009 ALONZO MELISSA DATE OF : 1940 AGE: [age] years old Referring Physician: SABRINA MARTELL Referring Clinic: [facility] CURRENT DIAGNOSES 1. - Hypercholesterolemia, 272.0 2. - CAD, 414.00 3. - Chest Pain Precordial, 786.51 4. - Hypertension, benign, 401.1 ALLERGIES Statins/cough MEDICATIONS (prior to changes made today) 1. Metoprolol 50mg, 1 p.o. twice daily 2. Carafate 1 gm, 1 p.o. daily 3. Aspirin 81 mg, 1 p.o. daily 4. zolpidem tartrate 10mg, 1 qHS 5. Ranitidine Hydrochloride 300 mg, PRN 6. Omeprazole 20mg, Take as Directed CHIEF COMPLAINTS Bp issues for past 3-4 months, pain in left arm and would like to discuss tests he has had HISTORY OF PRESENT ILLNESS It was my pleasure to see Alonzo Melissa who is a 68-year-old patient who was previously seen by my partner, Dr. Kory Rendon, for atypical discomfort. He had a nuclear stress test in 2006, which showedpossible mild inferior ischemia. This was read by Dr. Parnell. He had a stress test just over two weeks ago, which showed no evidence of ischemia. He had a stress echocardiogram performed one month ago. This showed no evidence of ischemia. The patient had some nonspecific ST depression, but was hypertensive with exercise. The discomfort is very odd sounding. It never occurs with exertion. When he is sitting down, he gets left flank discomfort (which radiates up into his left armpit). It literally extends from the left iliac crest up to the left armpit. It may last for 15 minutes. He feels nauseated with it. His blood pressure then tends to go up. He did have a colonoscopy. I do not have the results of that, but by all accounts nothing abnormal was found. He did have a CT scan of his abdomen and there was possibly some inflammation of the colon in that area. He has had a CT angiogram in the past. Step artifact was present, but it was only felt to be mild to moderate obstructive plaque in the coronary arteries. He has stopped taking his simvastatin because it was felt that it might be related to the inflammation of his colon. His lipids in October 2007 showed no evidence of ischemia. __ PAST HISTORY Past Medical Illnesses: hyperlipidemia, hypertension, GERD Past Cardiac Illnesses: coronary artery disease, chest pain Cardiology Procedures-Noninvasive: myocardial perfusion imaging (Nuc) Mar 2007, CT Scan 07.29, CTA 10.28, stress echo May 2009, myocardial perfusion (Nuc) May 2009 Cardiac Cath Results: 10/28 mild-mod CAD of LAD PMHx Stress Echo Results: 05/31 no ischemia, HTN at rest Left Ventricular Ejection Fraction: 05/2009 EF 50 % by nuc Nuclear Results: 03/29 mild LV cavity dilatation, mild reversible ischemia noted in the inferior wall and basal anterior wall, 05/2009 no evidence for myocardial ischemia or infarction FAMILY HISTORY: Father - hypertension and [place]; Mother - Age 64, cancer-lung; CARDIAC RISK FACTORS Tobacco Abuse: negative; Family History of Heart Disease: positive [id number] y/o; Hyperlipidemia: positive; Hypertension: positive; Diabetes Mellitus: negative; Prior History of Heart Disease: positive; Obesity:negative; Sedentary Life Style:negative; Age:negative ; LDL Goal <LT> 70 SOCIAL HISTORY Alcohol Use - drinks regularly, beer and wine; Smoking - does not smoke; Diet - caffeine use-1-2 per day; Lifestyle - and children; Exercise - exercises regularly, golf and walking; Seat Belt Use - always; 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 EYES no blurred vision, eye pain, or discharge., wears eye glasses/contact lenses EARS, NOSE, THROAT, MOUTH denies any hearing loss, epistaxis, hoarseness or difficulty speaking. RESPIRATORY dyspnea CARDIOVASCULAR chest pain, on left side up into armpit ABDOMINAL nausea unrelated to meals MUSCULOSKELETAL arthritis of the, back/spine NEUROLOGICAL headaches, occ PSYCHIATRIC sleep disturbance controlled with medication ENDOCRINE weight loss HEMATOLOGICAL/IMMUNOLOGIC denies any food allergies, seasonal allergies, bleeding disorders. PHYSICAL EXAMINATION VITAL SIGNS: Blood Pressure: 140/90 Sitting, Right arm, large cuff Pulse- 56.00/min. Weight- 190.00 lbs. Height- 70.00 Temperature- .00 CONSTITUTIONAL cooperative, alert and oriented,well developed, well nourished, in no acute distress. SKIN warm and dry to touch, no apparent skin lesions, or masses noted. HEAD normocephalic, atraumatic EYES Pupils equal and round, conjunctivae and lids unremarkable, sclera white, no xanthalasma ENT ears, nose and throat unremarkable NECK carotid pulses are full and equal [...] abnormalities noted. Normal muscle strength and tone. PSYCHIATRIC anxious NEUROLOGICAL no gross motor deficits noted, affect appropriate, oriented to time, person and place. MEDICATIONS UPDATED/STARTED TODAY: Metoprolol 50mg, 1 p.o. twice daily, DIRECTED Carafate 1 gm, 1 p.o. daily, DIRECTED MEDICATIONS REFILLED/STOPPED TODAY: Cozaar 50 mg 1 p.o. daily Physician Order, Simvastatin 40 mg 1 p.o. daily Physician Order and Metoprolol Er 50mg 1 p.o. daily 0 Physician Order IMPRESSION: 1. The discomfort that he describes (which is not exertional) is very noncardiac sounding. 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 He can walk up to 7 miles a day, and he has no limitationswhatsoever. This does not bring on his symptoms. It does not radiate to the arms or to the jaw. 2. The negative stress echocardiogram and the negative nuclear scan both within a short period of time of each other further confirm no evidence of ischemia. 3. Hypertension. It does appear that his blood pressure is not well controlled. It was recommended for him to start Cozaar. He has not done that yet. I think that it will be a good idea for him to start the Cozaar with the metoprolol. Angiotensin receptor blockers, at least some of them, also reduce cardiac events rates in patients with coronary artery disease like this gentleman. PLAN: At this stage, I do not think that any further investigation is required. I did inform the patient that we could do a coronary angiogram, which would have an accuracy of 99%. I did explain the risk and benefits of the procedure to the patient including the risk of stroke, cardiac , bleeding, bruising, hematoma formation, dye allergy, dye nephropathy, and the risks associated with conscious sedation including aspiration, intubation, and the risks associated with blood transfusions. Heunderstood the risks of the procedure. He has decided not to go ahead with the coronary angiogram, though this is available to him should he decide to change his mind. I, myself, would not typically recommend a coronary angiogram to a patient in this situation who has atypical symptoms and who has had two negative noninvasive tests. I have asked him to follow up with you. He can return to us on a p.r.n basis as needed. It has certainly been a pleasure being involved in the care of this very nice patient. This was a 35 minute visit of which the majority of the time was involved in discussing the results of his stress test. John Klein M.D. documented in this encounter Plan of Treatment Not on file documented as of this encounter Visit Diagnoses Not on filedocumented in this encounter Care Teams Reducing System Operator Relationship Specialty Start Date End Date Sabrina Martell MD PCP - General 03/04/04 11/16/16 Andrey Willis MD [facility] [address] [place] [address] PCP - General Family Practice 11/17/16 01/31/18 Terenec Vickers MD [facility] [address] [place] [address] PCP - General Family Practice 02/01/18 Avila Maria MD [address] [place] [id number] Assigned Heart and Vascular Provider 06/14/20 08/31/20 Avila Maria MD [address] [place] [id number] Assigned Heart and Vascular Provider 03/07/22 09/03/23 documented as of this encounter
--- OUTSIDE RECORDS SUMMARY | 2024-02-08 17:02 | XMS_ITS | Encounter Summary ---
Author Organization [place] Address [facility] [place] [address] Care Team Providers Care Airport Operations Supervisor Name Role Phone Sabrina Martell MD Primary Care Provider Unavailable Andrey Willis MD Primary Care Provider [phone] Terence Vickers MD Primary Care Provider [phone] Avila Maria MD Unavailable [phone] Avila Maria MD Unavailable [phone] Encounter Details Date Type Department Care Team (Late st Contact Info) Description 05/31/2009 Office Visit-[facility] [address] [place] [address] Kory Rendon MD [address] [facility] [address] [place] [address] Social History Tobacco Use Types Packs/Day Years [...] as of this encounter Progress Notes * Kory Rendon MD - 06/03/2009 4:07 PM CDT Progress Note Created by: Kory Rendon M.D. DATE: 05/31/2009 ALONZO MELISSA DATE OF : 1940 AGE: [age] years old Referring Physician: SABRINA MARTELL Referring Clinic: [facility] CURRENT DIAGNOSES 1. - Hypercholesterolemia, 272.0 2. - CAD, 414.00 3. - Abnormal Test-Abnormal Exercise Stress Test, 794.30 4. - Chest Pain Precordial, 786.51 5. - Hypertension, benign, 401.1 ALLERGIES Statins/cough MEDICATIONS (prior to changes made today) 1. Aspirin 81 mg, 1 p.o. daily 2. zolpidem tartrate 10mg, 1 qHS 3. Cozaar 50 mg, 1 p.o. daily 4. Simvastatin 40 mg, 1 p.o. daily 5. Metoprolol ER 50mg, 1 p.o. q.d. 6. Ranitidine Hydrochloride 300 mg, PRN 7. Omeprazole 20mg, Take as Directed CHIEF COMPLAINTS F/u visit and Stress result HISTORY OF PRESENT ILLNESS I had the opportunity to see this pleasant 68-year-old man as he has concerns about coronary arterydisease. He is a gentleman with a high calcium score of over 400. Initial stress nuclear study performed in 1986 suggested mild ischemia in the inferior wall. However, a CT angiogram performed last year showed no significant obstructive coronary artery disease. He has hypertension and hypercholesterolemia. His blood pressure control has been less than optimal at home. He tells me that for the past few weeks, he has had episodes of sudden nausea in the afternoon. With nausea, his blood pressure would go up. He has had readings around 170 systolic. He was evaluated in the Emergency Room. He hada stress echocardiogram very recently. He managed over 12 minutes on a Kurt protocol. There was definitely no evidence of inducible ischemia. On further questioning, he denies chest pain or significant shortness of breath on exertion. He works out on a regular basis. Aside from the nausea, he does complain of occasional epigastric pain and what he describes as a general gut ache. He has had an endoscopy about 18 months ago, and he was told that he was H pylori positive. His blood pressure control certainly appears very good today. He has no abdominal tenderness whatsoever. Cardiovascular system examination was normal. PAST HISTORY Past Medical Illnesses: hyperlipidemia, hypertension, GERD Past Cardiac Illnesses: coronary artery disease, chest pain Cardiology Procedures-Noninvasive: myocardial perfusion imaging (Nuc) Mar 2007, CT Scan 07.29, CTA 10.28, stress echo May 2009 Cardiac Cath Results: 10/28 mild-mod CAD of LAD PMHx Stress Echo Results: 05/31 no ischemia, HTN at rest Nuclear Results: 03/29 mild LV cavity dilatation, mild reversible ischemia noted in the inferior wall and basal anterior wall FAMILY HISTORY: Father - hypertension and [place]; Mother - Age 64, cancer-lung; SOCIAL HISTORY Alcohol Use - drinks regularly, beer and wine; Smoking - does not smoke; Diet - caffeine use-1-2 per day; Lifestyle - and children; Exercise - exercises regularly, golf and walking; Seat Belt Use - always; 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 EYES no blurred vision, eye pain, or discharge., wears eye glasses/contact lenses EARS, NOSE, THROAT, MOUTH denies any hearing loss, epistaxis, hoarseness or difficulty speaking. RESPIRATORY denies dyspnea, snoring, cough, wheezing or hemoptysis. ABDOMINAL nausea unrelated to meals MUSCULOSKELETAL arthritis of the, back/spine NEUROLOGICAL headaches, occ PSYCHIATRIC sleep disturbance controlled with medication ENDOCRINE weight loss HEMATOLOGICAL/IMMUNOLOGIC denies any food allergies, seasonal allergies, bleeding disorders. PHYSICAL EXAMINATION VITAL SIGNS: Blood Pressure: 120/78 Sitting, Right arm, regular cuff Pulse- 54.00/min. Weight- 198.60 lbs. Height- 70.00 Temperature- .00 CONSTITUTIONAL cooperative, [...] time, person and place. MEDICATIONS UPDATED/STARTED TODAY: Aspirin 81 mg, 1 p.o. daily zolpidem tartrate 10mg, 1 qHS Cozaar 50 mg, 1 p.o. daily Simvastatin 40 mg, 1 p.o. daily MEDICATIONS REFILLED/STOPPED TODAY: Diovan 160 mg 1 p.o. q.d. DIRECTED Physician Order, Meloxicam 7.5 mg PRN DIRECTED Physician Order and Vytorin 10mg/ 80mg 1 p.o. q.d. #30 Physician Order IMPRESSIONS/PLAN I reassured Mr. Melissa that currently we have no evidence at all that he has unstable coronary artery disease. We discussed the importance of good blood pressure control. He has been started on Cozaar, but he has not filled the prescription yet. I do note that he is normotensive today. He appearsa little anxious. I wonder whether some of his hypertension may be related to anxiety. Nonetheless,I think a combination of beta-daniel and Cozaar would work well to control his blood pressure. I will defer further management of his lipid profile to the capable hands of Dr. Sabrina Martell. I think that an LDL target of less than 100 would be good for him. All of his lipid numbers were at target with the levels that we have available from October 2007. As for his nausea and abdominal discomfort, I think that it is much more likely to be GI related (especially as he does have a history of gastroesophageal reflux disease and H pylori positivity). I reassured him and at this point have not arranged to see him in the clinic again. As always, we will be happy to see him should the need arise. TODAYS ORDERS 1. Return prn Kory Rendon M.D. documented in this encounter Plan of Treatment Not on file documented as of this encounter Visit Diagnoses Not on filedocumented in this encounter Care Teams Airport Operations Supervisor Relationship Specialty Start Date End Date Sabrina Martell MD PCP - General 03/04/04 11/16/16 Andrey Willis MD [facility] [address] [place] [phone] PCP - General Family Practice 11/17/16 01/31/18 Terence Vickers MD [facility] [address] [place] [phone] PCP - General Family Practice 02/01/18 Avila Maria MD [address] [place] [id number] Assigned Heart and Vascular Provider 06/14/20 08/31/20 Avila Maria MD [address] [place] [id number] Assigned Heart and Vascular Provider 03/07/22 09/03/23 documented as of this encounter
--- OUTSIDE RECORDS SUMMARY | 2024-02-08 17:03 | XMS_ITS | Encounter Summary ---
Author Organization [place] Address [facility] [place] [address] Care Team Providers Care Hris Analyst Name Role Phone Sabrina Martell MD Primary Care Provider Unavailable Andrey Willis MD Primary Care Provider [phone] Terence Vickers MD Primary Care Provider [phone] Avila Maria MD Unavailable [phone] Avila Maria MD Unavailable [phone] Encounter Details Date Type Department Care Team (Late st Contact Info) Description 10/25/2007 Office Visit-[facility] [address] [place] [address] Primitivo Lemons MD [address] [facility] [address] [place] [address] Social History Tobacco Use Types [...] as of this encounter Progress Notes * Primitivo Lemons MD - 10/27/2007 9:40 AM CST Progress Note Created by: Primitivo Lemons M.D. DATE: 10/25/2007 ALONZO MELISSA DATE OF : 1940 AGE: [age] years old Referring Physician: SABRINA MARTELL Referring Clinic: [facility] CURRENT DIAGNOSES 1. - CAD, 414.00 2. - Hypercholesterolemia, 272.0 3. - Abnormal Test-Abnormal Exercise Stress Test, 794.30 4. - Chest Pain Precordial, 786.51 5. - Hypertension, benign, 401.1 ALLERGIES Statins/cough MEDICATIONS (prior to changes made today) 1. Metoprolol ER 50mg, 1 p.o. q.d. 2. Diovan 160 mg, 1 p.o. q.d. 3. Ranitidine Hydrochloride 300 mg, PRN 4. Meloxicam 7.5 mg, PRN 5. Vytorin 10mg/ 80mg, 1 p.o. q.d. CHIEF COMPLAINTS Consult -plaque in arteries HISTORY OF PRESENT ILLNESS Thank you for referring Mr. Alonzo Melissa to Cardiology Clinic today for discussion of chest painand cardiac risk factors including hypertension and dyslipidemia. As you know, he is a 67-year-old gentleman who has been quite concerned about the possibility of coronary artery disease based on his significant family history. He has had two coronary CT scans performed at [facility]. His first scan in 2002 demonstrated a total calcium score of 183. His subsequent study in 2006 demonstrated a calcium score of over 400. I believe it was about 460. This increase concerned him and he wentin for a stress test at [facility] in March,. That was performed with exercise and nuclear imaging. The EKG portion was normal except for resting hypertension. He did not have chest pain and was able to exercise for 9 minutes on the treadmill. The nuclear images, however, demonstrated a mild degree of inferior ischemia, as well as a small reversible basal anterior defect as well. His ventricle was mildly enlarged with a low normal to mildly reduced left ventricular systolic f unction. His ejection fraction was measured at 49%. He does not recall getting the results of that most recent stress test. He was confused and believed that a stress echocardiogram performed in 2003 was the study that was performed in March,, but that it had the wrong dates. I helped him straighten out that issue. He does report having some chest pain symptoms. He has had some left-sided chest discomfort radiating to the axilla from time to time. This seems mostly nonexertional and not associated with any diaphoresis, shortness of breath, lightheadedness, palpitations, or other concerning cardiac symptoms. He is generally very active and often walks a mile and a half to the grocery store and back with groceries. He believes his exercise tolerance is not as good as it used to be. He attributes this more to fatigue and shortness of breath than anything else. He brings with him some cholesterol numbers today which indicate that his LDL has been consistentlyabove 100. Most recently it was 106, HDL of 47, triglycerides 148, and total cholesterol 181 in June,. On examination today his blood pressure is 150/82, heart rate 54, and weight 200 pounds. His lungs are clear. Heart rhythm is regular. He has no cardiac murmurs and no carotid bruits. He has excellent peripheral pulses. EKG today demonstrated sinus bradycardia at 49 beats per minute but was otherwise a normal ECG. I reviewed that ECG personally. 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 EYES denies diplopia, history of glaucoma or visual field defects. EARS, NOSE, THROAT, MOUTH denies any hearing loss, epistaxis, hoarseness or difficulty speaking. RESPIRATORY dyspnea with exertion CARDIOVASCULAR chest pain related to activity ABDOMINAL denies ulcer disease, hematochezia or melena. MUSCULOSKELETAL arthritis of the, back/spine NEUROLOGICAL denies any history of recurrent strokes, headaches, TIA, or seizure disorder. PSYCHIATRIC denies any history of depression, substance abuse or change in cognitive functions. ENDOCRINE denies any history of thyroid disease or diabetes mellitus. HEMATOLOGICAL/IMMUNOLOGIC denies any food allergies, seasonal allergies, bleeding disorders. PHYSICAL EXAMINATION VITAL SIGNS: Blood Pressure: 150/82 Sitting, Left arm, large cuff Pulse- 54.00/min. Weight- 200.00 lbs. Height- 70.00 Temperature- .00 CONSTITUTIONAL cooperative, [...] person and place. MEDICATIONS UPDATED/STARTED TODAY: Metoprolol ER 50mg, 1 p.o. q.d., DIRECTED Diovan 160 mg, 1 p.o. q.d., DIRECTED Ranitidine Hydrochloride 300 mg, PRN, DIRECTED Meloxicam 7.5 mg, PRN, DIRECTED Vytorin 10mg/ 80mg, 1 p.o. q.d., #30 IMPRESSION: Mr. Alonzo Melissa is a 67-year-old gentleman with hypertension, dyslipidemia, and a family history of heart disease who has clear evidence of coronary calcification by CT scan with a calcium score of over 400. He also has some atypical left-sided chest pain symptoms and an abnormal stress test showing mild inferior ischemia and a possible basal anterior ischemic defect as well. He has mild cardiac enlargement with low normal left ventricular function. I suggested that he needs to get back on his Diovan which he has been holding because he thought hedid not need it. His blood pressure is generally in the 120s-130s. I also will increase his simvastatin to 80 mg q.d. and combine that with Zetia into Vytorin. I suggested we need to evaluate his coronaries further to determine whether this area of inferior ischemia is a true finding. For that reason I have ordered a CT coronary angiogram. If he has evidence of significant coronary plaque that may be occlusive, we will need to set him up for a traditional coronary angiogram for further evaluation and possible treatment. I will have him return to see us after the CT scan has been performed to go over those results and make that decision. Thank you for allowing me to participate in Mr. Melissa's care. TODAYS ORDERS 1. F/U with Rosamaria Valerio, P.A. 7-[address] Coronary Angiogram 1 week Primitivo Lemons M.D. documented in this encounter Plan of Treatment Not on file documented as of this encounter Visit Diagnoses Not on filedocumented in this encounter Care Teams Hris Analyst Relationship Specialty Start Date End Date Sabrina Martell MD PCP - General 03/04/04 11/16/16 Andrey Willis MD [facility] [address] [place] [phone] PCP - General Family Practice 11/17/16 01/31/18 Terence Vickers MD [facility] [address] [place] [phone] PCP - General Family Practice 02/01/18 Avila Maria MD [address] [place] [id number] Assigned Heart and Vascular Provider 06/14/20 08/31/20 Avila Maria MD [address] [place] [address] [id number] Assigned Heart and Vascular Provider 03/07/22 09/03/23 documented as of this encounter
--- OUTSIDE RECORDS SUMMARY | 2024-02-08 17:03 | XMS_ITS | Clinical Summary ---
Author Organization [facility] Address [place], [place] [address] Care Team Providers Care Slitter Cut Off Operator Name Role Phone Suhas Randolph MD Unavailable [phone] Terence Vickers MD Primary Care Provider [phone] Allergies No known active allergies Medications Medication Sig Dispensed Refills Start Date End Date Status clonazePAM (KLONOPIN) 0.5 mg tablet Take 1/2-1 tablet by mouth at bedtime 30 tablet 10/28/2017 Active Capsicum, Cayenne, 450 mg cap Daily Active multivitamins with minerals tablet Active amLODIPine (NORVASC) 10 mg tablet Take 0.5 Tablets by mouth once daily. 06/26/2021 Active aspirin enteric coated (ECOTRIN) 325 mg tablet Daily Active cholecalciferol (VITAMIN D3) 1,000 unit capsule Daily Active famotidine (PEPCID) 20 mg tablet Daily 01/31/2021 Active losartan (COZAAR) 50 mg tablet Take 2 Tablets by mouth once daily. 08/01/2020 Active coenzyme q10 100 mg cap Daily Active metoprolol tartrate (Lopressor) 50 mg tablet 0.5 Tablets (25 mg) two times daily. 10/25/2023 Active atorvastatin (Lipitor) 40 mg tablet Take 0.5 Tablets (20 mg) by mouth once daily. 10/25/2023 Active zolpidem (AMBIEN) 10 mg tablet Take 0.5 Tablets (5 mg) by mouth at bedtime. 10/25/2023 Active nortriptyline (PAMELOR) 10 mg capsule Take 2 Capsules (20 mg) by mouth at bedtime. 10/25/2023 Active omeprazole (PRILOSEC) 20 mg Delayed-Release capsule Take 40 mg by mouth once daily before a meal. 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 90 Tablet 3 10/25/2023 Active Active Problems Problem Noted Date Diagnosed Date Health examination of defined subpopulation 11/23 Coronary artery calcification seen on CAT scan 0 12/20/2013 Hypertension 12/18/2013 Hyperlipidemia 12/18/2013 Abnormal findings diagnostic imaging of heart and coronary circulation 12/18/2013 Lung nodule 12/18/2013 Insomnia 12/18/2013 GERD (gastroesophageal reflux disease) 4 Shoulder injury 12/18/2013 Immunizations Name Administration Dates Next Due COVID-19 vaccine (KIT digital 30mcg/0.3mL) PF, MDV 10/19/2020,09/28/2020 Influenza Virus, Unspecified 05/05/2022, 05/23/2021,06/01/2012,2010 Influenza, High-dose Inactivated 018,05/26/2017,05/28/2016,2013 Influenza, High-dose Quadriv alent Inactivated 05/05/2022,06/04/2021,06/04/2020 Influenza, IIV3 (Age >=3 years) 06/12/20 10,05/22/2009,06/29/2008,2006,06/16/2005 Influenza, IIV4 05/27/2019 Pneumococcal Poly,23-Valent (Pneumovax) 07/11/2011,07/11/2010,05/22/2009 Pneumococcal conj 13-Valent (Prevnar 13) 02/24/2018 Td (Age >=7 Years) 08/23/2008,08/26/2004, 991 Td, Preservative Free (age > = 7 Years) 08/23/2008 Tdap 02/24/2018 Zoster (Shingrix-RZV, recombinant) 07/14/2019, Zoster (Zostavax-ZVL, live) 08/13/2014 Family History Medical History Relation Name Comments Other Brother born prematurel y so walks with walker Good Health Daughter [...] Years Used Date Smoking Tobacco: Former Cigarettes S tarted: 12/29/1994 Smokeless Tobacco: Never Alcohol Use Standard Drinks/Week Comments Yes 7 (1 standard drink = 0.6 oz pur e alcohol) 12oz red wine 5+ days/week PHQ-2 Answer Date Recorded PHQ-2 TOTAL SCORE 0 10/09/2020 Social Connections Answer Date Recorded Frequency of Communication with Friends and Fami ly Not on file 08/23/2021 Financial Resource Strain Answer Date R ecorded Difficulty of Paying Living Expenses Not on file 08/23/2021 Difficulty of Paying Living Expenses Not on file 08/23/2021 Sex and Gender Information Value Date Recorded Sex Assigned at Not on file Gender Identity Not on file Sexual Orientation Not on file Obstetrics History Last Filed Vital Signs Vital Sign Reading Time Taken Comments Blood Pressure 146/76 10/25/2023 2:04 PM [employer] Pulse 63 10/25/2023 2:04 PM [employer] Temperature - - Respiratory Rate 14 09/14/2022 12:01 PM [employer] Oxygen Saturation 98% 10/25/2023 2:04 PM [employer] Inhaled Oxygen Concentration - - Weight 89 kg (196 lb 4.8 oz) 10/25/2023 2:04 PM [employer] Height 175.3 cm (5' 9.02) 10/25/2023 2:04 PM CS T Body Mass Index 28.98 10/25/2023 2:04 PM [employer] Plan of Treatment Health Maintenance Due Date Last Done Comments Medicare Wellness for age 65+ 2004 Depression screening for age 12+ 10/09/2021 10/09/19 21 COVID-19 vaccine series ( season) 2023 06/01/2023, 05/05/2022, 12/08/2021, Additional history exists Influenza for age 65+ 04/23/2024 05/05/2022 , 05/05/2022, 06/04/2021, Additional history exists BMI (ht and wt on same day) for age 18+ 10/24/2024 10/25/2023, 09/14/2022, 10/02/2021, Additional history exists Tetanus booster 02/25/2028 02/24/2018, 08/2008, 08/23/2008, Additional history exists Pneumococcal series for age 65+ Completed 02/24/2018, 07/11/2011, 07/11/2010, Additional history exists Tdap Completed 02/24/2018 Zoster (shingles) series for age 50+ Completed 07/14/2019, 05/13/2019, 08/13/2014 Goals Goal Patient Goal Type Associated Problems Recent Progress Patient-Stated? Author BLOOD PRESSURE - MAINTAINS BP less than 140/90 Blood Pressure No Suhas Randolph MD Care Teams Slitter Cut Off Operator Relationship Specialty Start Date End Date Terence Vickers MD [id number] [place] [address] PCP - General Family Practice 02/15/19 Suhas Randolph MD Consulting Physician Cardiovascular Disease 12/29/13
== END 2024-01-24 09:36 | disposition home or self-care (01) ==
LOC: NFLDREF 02-08 17:01
PROVIDERS: PCP Family Medicine; Referring Provider Family Medicine; Visit Provider Family Medicine
DX: R73.03 Prediabetes (principal); I10 Essential (primary) hypertension; E78.5 Hyperlipidemia, unspecified; Z12.5 Encounter for screening for malignant neoplasm of prostate
CPT/HCPCS: 80053; 80061; G0103

== ENCOUNTER 2025-01-29 08:50 | Outpatient (CLI) | payer MEDICARE, SELFPAY | END 2025-01-29 08:51 | disposition home or self-care (01) | LOC: NFLDREF 15:39 | PROVIDERS: PCP Family Medicine; Referring Provider Family Medicine; Visit Provider Family Medicine | DX: E78.5 Hyperlipidemia, unspecified (principal); I25.10 Atherosclerotic heart disease of native coronary artery without angina pectoris; I10 Essential (primary) hypertension; N40.0 Benign prostatic hyperplasia without lower urinary tract symptoms; Z12.5 Encounter for screening for malignant neoplasm of prostate | CPT/HCPCS: 80053; 80061; G0103 ==

== ENCOUNTER 2025-02-12 10:07 | Outpatient (CLI) | payer MEDICARE, SELFPAY | END 2025-02-12 10:08 | disposition home or self-care (01) | LOC: LKVREF 10:09 | PROVIDERS: PCP Family Medicine; Visit Provider Family Medicine | DX: I49.9 Cardiac arrhythmia, unspecified (principal); R41.3 Other amnesia; R53.83 Other fatigue | CPT/HCPCS: 82607; 84443 ==

== ENCOUNTER 2025-04-16 11:00 | Outpatient (CLI) | payer MEDICARE, SELFPAY | END 2025-04-16 11:01 | disposition home or self-care (01) | LOC: LKVREF 11:01 | PROVIDERS: PCP Family Medicine; Visit Provider Family Medicine | DX: R97.20 Elevated prostate specific antigen [PSA] (principal); Z12.5 Encounter for screening for malignant neoplasm of prostate | CPT/HCPCS: 84153; 84154 ==